=== PATIENT | male | born 1985 | race Caucasian/White ===

== ENCOUNTER 2024-09-15 01:26 | Emergency (ER) | payer OTHER ==
[2024-09-15 01:39] VITALS: BMI 36.9
[2024-09-15] MEDS ORDERED: ACETAMINOPHEN INJECTION 100 ML ONE (02:35)
[2024-09-15] MEDS ORDERED: METOCLOPRAMIDE HCL INJECTION 10 MG/2 ML VIAL ONE (02:35)
[2024-09-15 02:58] LABS: HEMATOCRIT 46.6 % (35.4-49); HEMOGLOBIN 15.5 GM/dL (11.7-16.9); MCH 30.8 pg (25.7-33.7); MCHC 33.4 g/dl (32.0-35.9); MEAN CELL VOLUME 92.3 fl (80-96); MEAN PLT VOLUME 7.4 fl (7.5-11.1); PLATELET COUNT 258 10^3/uL (134-434); RBC 5.05 M/mm3 (4.00-5.60); RDW 13.9 % (11.9-15.9); WHITE BLOOD COUNT 15.4 K/mm3 (4.0-10.0)
[2024-09-15] MEDS: SODIUM CHLORIDE 0.9% 500 ML INFUS.BAG IV ONE (03:00)
[2024-09-15] MEDS: METOCLOPRAMIDE HCL INJECTION 10 MG/2 ML VIAL IVPB ONE (03:00)
[2024-09-15 03:14] LABS: CHLORIDE 118 mmol/L (98-107); SODIUM 147 mmol/L (136-145)
[2024-09-15 03:17] LABS: BLOOD UREA NITROGEN 16.7 mg/dL (7-18); CO2 20 mmol/L (21-32); GLUCOSE,RANDOM 94 mg/dL (74-106); MAGNESIUM 1.4 mg/dL (1.8-2.4); PROTHROMBIN TIME (PATIENT) 11.5 SEC (9.7-13.0)
[2024-09-15 03:18] LABS: ALBUMIN 2.8 g/dl (3.4-5.0)
[2024-09-15 03:19] LABS: CREATININE 0.6 mg/dL (0.55-1.3); SGOT/AST 15 U/L (15-37); SGPT/ALT 25 U/L (13-61)
[2024-09-15 03:20] LABS: ACTIVATED PTT 30.5 SECONDS (25.2-36.5)
[2024-09-15 03:21] LABS: PHOSPHOROUS 1.9 mg/dL (2.5-4.9)
[2024-09-15 03:22] LABS: BILIRUBIN,TOTAL 0.3 mg/dL (0.2-1); TOT PROT 5.1 g/dl (6.4-8.2)
[2024-09-15 03:23] LABS: ALK PHOS 66 U/L (45-117)
[2024-09-15 03:32] LABS: ANION GAP 8 mmol/L (4-13); CALCIUM 6.6 mg/dL (8.5-10.1); POTASSIUM 2.6 mmol/L (3.5-5.1)
[2024-09-15 03:33] LABS: LACTIC ACID 2.1 mmol/L (0.4-2.0)
[2024-09-15] MEDS ORDERED: MAGNESIUM SULFATE IN WATER 2 GM/50 ML IVPB IVPB ONE (03:35)
[2024-09-15] MEDS ORDERED: MAGNESIUM SULF 50% (8.12 MEQ/2 ML-1 GM VIAL) IVPB ONE (03:36)
[2024-09-15] MEDS: ACETAMINOPHEN 1000 MG/100 ML BAG IVPB ONE (03:43)
[2024-09-15] MEDS: MAGNESIUM SULF 50% (8.12 MEQ/2 ML-1 GM VIAL) IVPB ONE (03:43)
[2024-09-15] MEDS: SODIUM CHLORIDE 1,000 ML IV STA (03:52)
[2024-09-15] MEDS ORDERED: NAPH,MB-DB/K PH,MBDB POWDER PACKET ONE (04:58)
[2024-09-15] MEDS ORDERED: POTASSIUM CHLORIDE TABS 20 MEQ TABLET.ER (FP) PO ONE (04:58)
[2024-09-15] MEDS: POTASSIUM CHLORIDE TABS 20 MEQ TABLET.ER (FP) PO ONE (05:05)
[2024-09-15] MEDS: NAPH,MB-DB/K PH,MBDB POWDER PACKET PO ONE (05:05)
[2024-09-15 05:08] LABS: MACROCYTOSIS 0
[2024-09-15] MEDS ORDERED: MORPHINE SULFATE 2 MG/ML SYRINGE ONE (05:15)
[2024-09-15] MEDS ORDERED: ONDANSETRON 4 MG/2 ML VIAL ONE (05:16)
[2024-09-15] MEDS: morphine CARPU-JECT 4 MG/1 ML DISP.SYRIN IVPUSH ONE ×2 (05:20→09:02)
[2024-09-15] MEDS: ONDANSETRON 4 MG/2 ML VIAL IVPUSH ONE (05:20)
[2024-09-15 05:59] LABS: LACTIC ACID 2.6 mmol/L (0.4-2.0)
[2024-09-15] MEDS: SODIUM CHLORIDE 0.45% 1,000 ML IV SCH (06:49)
[2024-09-15 07:52] LABS: EPI CELLS 6 /uL (0-25.1); HYALINE CASTS 0 /uL (0-3.1); PH,URINE 6.5 (5.0-8.0); URINE APPEARANCE CLEAR; URINE BACTERIA 16 /uL (0-1359); URINE BILIRUBIN NEGATIVE (NEGATIVE); URINE COLOR YELLOW; URINE GLUCOSE (UA) NEGATIVE (NEGATIVE); URINE KETONE NEGATIVE (NEGATIVE); URINE LEUK ESTERASE NEGATIVE (NEGATIVE); URINE NITRITE NEGATIVE (NEGATIVE); URINE PROTEIN NEGATIVE (NEGATIVE); URINE RBC 30 /uL (0-23.9); URINE UROBILINOGEN 0.2 mg/dL (0.2-1.0); URINE WBC 3 /uL (0-25.8)
[2024-09-15 08:02] LABS: POTASSIUM 4.2 mmol/L (3.5-5.1)
[2024-09-15 08:06] LABS: BLOOD UREA NITROGEN 14.1 mg/dL (7-18)
[2024-09-15 08:09] LABS: BILIRUBIN,TOTAL 0.6 mg/dL (0.2-1); CREATININE 0.7 mg/dL (0.55-1.3)
[2024-09-15 08:11] LABS: TOT PROT 6.6 g/dl (6.4-8.2)
[2024-09-15 08:14] LABS: ALBUMIN 3.6 g/dl (3.4-5.0); CALCIUM 8.3 mg/dL (8.5-10.1)
[2024-09-15] MEDS ORDERED: morphine SULFATE 4 MG/ML VIAL ONE (08:41)
[2024-09-15] MEDS ORDERED: IBUPROFEN 400 MG TABLET (FP) PO ONE (09:21)
[2024-09-15] MEDS ORDERED: metroNIDAZOLE 250 MG TABLET ONE (09:21)
[2024-09-15] MEDS: IBUPROFEN 400 MG TABLET (FP) PO ONE (09:41)
[2024-09-15] MEDS: metroNIDAZOLE 250 MG TABLET PO ONE (09:42)
[2024-09-15] MEDS: CIPROFLOXACIN 500 MG TABLET (RESTRICTED TO ID) PO ONE (09:42)
[2024-09-15 10:01] LABS: MAGNESIUM 2.4 mg/dL (1.8-2.4)
[2024-09-15 10:05] LABS: PHOSPHOROUS 2.9 mg/dL (2.5-4.9)
[2024-09-15 10:28] VITALS: PULSE 68; RESP 19; TEMP 98
[2024-09-15 11:12] VITALS: BP 160/90
== END 2024-09-15 11:13 | disposition home or self-care (01) ==
LOC: JER 01:26
PROC: 3E033NZ Introduction of Analgesics, Hypnotics, Sedatives into Peripheral Vein, Percutaneous Approach (ICD-10-PCS; principal; 2024-09-15)
PROC: 3E033GC Introduction of Other Therapeutic Substance into Peripheral Vein, Percutaneous Approach (ICD-10-PCS; 2024-09-15)
PROC: 3E033GC Introduction of Other Therapeutic Substance into Peripheral Vein, Percutaneous Approach (ICD-10-PCS; 2024-09-15)
PROC: 3E033NZ Introduction of Analgesics, Hypnotics, Sedatives into Peripheral Vein, Percutaneous Approach (ICD-10-PCS; 2024-09-15)
PROC: 3E033NZ Introduction of Analgesics, Hypnotics, Sedatives into Peripheral Vein, Percutaneous Approach (ICD-10-PCS; 2024-09-15)
PROC: 3E033GC Introduction of Other Therapeutic Substance into Peripheral Vein, Percutaneous Approach (ICD-10-PCS; 2024-09-15)
DX: K52.9 Noninfective gastroenteritis and colitis, unspecified (principal); R10.31 Right lower quadrant pain; R11.2 Nausea with vomiting, unspecified; R19.7 Diarrhea, unspecified; K40.30 Unilateral inguinal hernia, with obstruction, without gangrene, not specified as recurrent; E87.8 Other disorders of electrolyte and fluid balance, not elsewhere classified; Z20.822 Contact with and (suspected) exposure to COVID-19
CPT/HCPCS: 0241U-QW; 36415; 74177-TC; 80053; 81003; 82010; 83605; 83690; 83735; 84100; 85025; 85610; 85730; 86850; 86900; 86901; 93005; 93010; 99285-25; J0131; Q9967